=== PATIENT | male | born 1990 | race African-American/Black ===

== ENCOUNTER 2018-05-31 00:32 | Emergency (ER) | payer SELFPAY ==
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
== END 2018-05-31 02:20 | disposition home or self-care (01) ==
LOC: ERS 00:32
DX: S29.012A Strain of muscle and tendon of back wall of thorax, initial encounter (principal); F17.210 Nicotine dependence, cigarettes, uncomplicated; V43.62XA Car passenger injured in collision with other type car in traffic accident, initial encounter
CPT/HCPCS: 71046

== ENCOUNTER 2021-04-18 13:02 | Emergency (ER) | payer SELFPAY ==
[2021-04-19 11:36] LABS: SARS-CoV-2 PCR by NAA DETECTED (NotDetected)
== END 2021-04-18 14:12 | disposition home or self-care (01) ==
LOC: ERS 13:02
DX: U07.1 COVID-19 (principal); J30.9 Allergic rhinitis, unspecified; F17.210 Nicotine dependence, cigarettes, uncomplicated
CPT/HCPCS: 99283; U0003; U0005

== ENCOUNTER 2022-04-17 09:07 | Emergency (ER) | payer OTHER, SELFPAY | END 2022-04-17 11:28 | disposition home or self-care (01) | LOC: ERS 09:07 | DX: R51.9 Headache, unspecified (principal); F17.210 Nicotine dependence, cigarettes, uncomplicated | CPT/HCPCS: 70450 ==

== ENCOUNTER 2022-09-13 04:37 | Emergency (ER) | payer SELFPAY ==
[2022-09-13] MEDS ORDERED: Ondansetron ODT 4 MG TAB ONE (04:52)
== END 2022-09-13 05:24 | disposition home or self-care (01) ==
LOC: ERS 04:37
DX: R11.2 Nausea with vomiting, unspecified (principal); R19.7 Diarrhea, unspecified; F17.210 Nicotine dependence, cigarettes, uncomplicated
CPT/HCPCS: 99283; Q0162

== ENCOUNTER 2022-10-30 04:11 | Emergency (ER) | payer SELFPAY | END 2022-10-30 05:54 | disposition home or self-care (01) | LOC: ERS 04:11 | DX: S29.012A Strain of muscle and tendon of back wall of thorax, initial encounter (principal); F17.210 Nicotine dependence, cigarettes, uncomplicated; X58.XXXA Exposure to other specified factors, initial encounter | CPT/HCPCS: 99283 ==

== ENCOUNTER 2022-11-26 04:37 | Emergency (ER) | payer SELFPAY ==
[2022-11-26] MEDS ORDERED: Meclizine HCl 25 MG TAB ONE (06:28)
[2022-11-26] MEDS ORDERED: Ondansetron ODT 8 MG TAB ONE (06:28)
== END 2022-11-26 06:32 | disposition home or self-care (01) ==
LOC: ERS 04:37
DX: H81.399 Other peripheral vertigo, unspecified ear (principal); F17.210 Nicotine dependence, cigarettes, uncomplicated
CPT/HCPCS: 99283; Q0162

== ENCOUNTER 2022-12-19 04:23 | Emergency (ER) | payer SELFPAY ==
[2022-12-19] MEDS ORDERED: Ketorolac Tromethamine 30 MG/ML VIAL ONE (05:00)
[2022-12-19] MEDS ORDERED: Acetaminophen 500 MG TAB ONE (05:00)
[2022-12-19] MEDS ORDERED: Magnesium 2 GM/50 ML BAG (IN WATER) ONE (05:00)
[2022-12-19] MEDS ORDERED: diphenhydrAMINE 50 MG/ML VIAL ONE (05:00)
[2022-12-19] MEDS ORDERED: Prochlorperazine 10 MG/2 ML VIAL IVP SCH (05:15)
== END 2022-12-19 06:50 | disposition home or self-care (01) ==
LOC: ERS 04:23
DX: G43.909 Migraine, unspecified, not intractable, without status migrainosus (principal); F17.210 Nicotine dependence, cigarettes, uncomplicated
CPT/HCPCS: 93005; 96365; 96366; 96375; J0780; J1200; J1885; J3475

== ENCOUNTER 2023-09-06 11:34 | Emergency (ER) | payer SELFPAY ==
[2023-09-06 12:42] LABS: #Eosinphils 0.2 thou/uL (0.0-0.7); #Monocytes 0.5 thou/uL (0.11-0.59); #Neutrophils 2.2 thou/uL (1.40-6.50); %Basophils 0.5 % (0.0-1.0); %Eosinophils 2.8 % (0.0-10.0); %Lymphocytes 48.3 % (21.0-51.0); %Monocytes 8.5 % (0.0-10.0); %Neutrophils 39.7 % (42.0-75.0); Hematocrit 44.2 % (42.0-52.0); Hemoglobin 14.9 g/dL (14.0-18.0); Mean Corpuscular HGB CONC 33.7 g/dL (32.0-36.0); Mean Corpuscular Hemoglobin 31.6 pg (27.0-31.0); Mean Corpuscular Volume 93.6 fl (78.0-98.0); Mean Platelet Volume 9.6 fL (7.4-10.4); Platelet Count 255 10x3/uL (130-400); RBC Distribution Width 12.7 % (11.5-14.5); Red Blood Cell (RBC) Count 4.72 mill/uL (4.70-6.10); White Blood Cell (WBC) Count 5.6 10x3/uL (4.8-10.8)
[2023-09-06] MEDS ORDERED: Metoclopramide HCl 10 MG/2 ML VIAL ONE (12:52)
[2023-09-06] MEDS ORDERED: Ketorolac Tromethamine 30 MG/ML VIAL ONE (12:52)
[2023-09-06] MEDS ORDERED: diphenhydrAMINE 50 MG/ML VIAL ONE (12:52)
[2023-09-06] MEDS ORDERED: methylPREDNISolone Sod Succ/PF 125 MG/2 ML VIAL ONE (12:52)
[2023-09-06 13:07] LABS: ALT (SGPT) 14 U/L (8-55); AST (SGOT) 23 U/L (5-34); Albumin 4.6 g/dL (3.5-5.0); Alkaline Phosphatase 49 U/L (40-110); Anion Gap 12 mmol/L (10-20); BUN (Urea Nitrogen) 14 mg/dL (8.9-20.6); Bilirubin, Total 0.7 mg/dL (0.2-1.2); CK (CPK) 418 U/L (30-200); Calc. Creatinine Clearance 0 mL/min (70-130); Calcium 9.4 mg/dL (7.8-10.44); Carbon Dioxide 26 mmol/L (22-29); Chloride 105 mmol/L (98-107); Estimated GFR 118; Globulin 2.6 g/dL (2.4-3.5); Glucose 86 mg/dL (70-105); Protein, Total 7.2 g/dL (6.0-8.3); Sodium 139 mmol/L (136-145)
== END 2023-09-06 14:57 | disposition home or self-care (01) ==
LOC: ERS 11:34
DX: R51.9 Headache, unspecified (principal); F17.210 Nicotine dependence, cigarettes, uncomplicated
CPT/HCPCS: 70450; 80053; 82550; 85025; 96365; 96366; 96375; J1200; J1885; J2765; J2930